=== PATIENT | male | born 2000 | race Caucasian/White ===

== ENCOUNTER 2021-10-10 13:36 | Emergency (ER) | payer MEDICAID, SELFPAY ==
--- NOTE | ~2021-10-10 | XR_ITS ---
EXAMINATION: XR ANKLE, RIGHT CLINICAL INFORMATION: Trauma, pain COMPARISON: None TECHNIQUE: AP, lateral, and mortise views of the right ankle. FINDINGS: There is no fracture or dislocation. The malleoli are intact and the ankle mortise is symmetric. The talar dome shows no osteochondral lesion. The subtalar joint is unremarkable. XR/XR ankle RT min 3V IMPRESSION: Normal right ankle.
[2021-10-10 13:48] VITALS: BP 123/58; PULSE 102; RESP 17; TEMP 36.7; O2SAT 97; BMI 26.4
--- NOTE | 2021-10-10 14:56 | ED_ITS ---
HPI - Extremity Injury (Lower) General Chief Complaint: Extremity Injury, Lower Stated Complaint: Ankle Inj Time Seen by Provider: 10/10/21 14:47 Source: patient Mode of arrival: ambulatory Limitations: no limitations History of Present Illness HPI Narrative: 21-year-old male here with complaints of right ankle pain after an inversion injury last evening. Patient denies any additional injury. Pain is worsened with weight-bearing. Related Data Previous Rx's Medication Instructions Recorded ibuprofen 600 mg tablet 600 mg PO Q8H PRN #20 tab 10/10/21 Allergies Allergy/AdvReac Type Severity Reaction Status Date / Time No Known Allergies Allergy Verified 10/10/21 13:48 Review of Systems Review of Systems: Yes all other systems are reviewed and are negative Constitutional: Constitutional: Reports no additional constitutional complaints, Denies body ache(s), Denies chills, Denies fever(s), Denies headache(s) and Denies weakness Eyes: Eyes: Reports no additional eye complaints and Denies change in vision ENT: Reports system reviewed and no additional complaints, except as documented, Denies dizziness, Denies headache(s), Denies nasal congestion, Denies nasal discharge and Denies neck pain Cardiovascular: Cardiovascular: Reports no additional cardiovascular complaints, Denies chest pain, Denies leg edema and Denies dyspnea Respiratory: Respiratory: Reports no additional respiratory complaints, Denies cough and Denies dyspnea Gastrointestinal: Gastrointestinal: Reports no additional gastrointestinal complaints, Denies abdominal pain, Denies diarrhea, Denies nausea and Denies vomiting Genitourinary: Genitourinary: Denies urinary incontinence Musculoskeletal: Musculoskeletal: Reports no additional musculoskeletal complaints, Denies back pain, Reports arthralgias, Reports joint swelling, Denies neck pain, Denies numbness and Denies tingling Integumentary/Breasts: Skin/Breast: Reports system reviewed and no additional complaints, except as docu and Denies rash Neurologic: Reports system reviewed and no additional complaints, except as documented, Denies Abnormal speech present, Denies dizziness, Denies headache(s), Denies numbness, Denies tingling and Denies weakness [facility] Past Medical History Attestation statement: The following information was validated with the patient. Source: old records reviewed and nursing notes reviewed Medical History Asthma Social History Social History Advance Directives: No Advance Directives Information Provided: No Physical Exam Vital Signs: Vital Signs: Last Vital Signs Temp 98.0 F 10/10/21 13:48 Pulse 102 H 10/10/21 13:48 Resp 17 10/10/21 13:48 BP 123/58 L 10/10/21 13:48 Pulse Ox 97 10/10/21 13:48 BMI result Body Mass Index 26.4 Const: General: cooperative, healthy appearing, comfortable and no acute distress Orientation/consciousness: patient oriented x3 Limitations: no limitations HENMT: Head: Yes normal to inspection Ears: hearing grossly normal bilaterally General nose exam: Normal external nose present Face and sinus: Yes normal facial exam Mouth: Normal oral and palatal mucosa present Throat: Yes posterior oropharynx normal Eyes: General: appearance normal, both eyes and all related structures Pupils: Equal, round and reactive pupils present Neck: Neck: Yes normal visual inspection Chest: Chest palpation & inspection: normal inspection of the chest Resp: Effort & Inspection: normal respiratory effort Auscultation: clear to auscultation bilaterally Cardio: Rate: regular rate Rhythm: regular rhythm Peripheral pulses: Peripheral pulses 2+ throughout GI: Inspection: Yes normal to inspection Palpation (GI): Soft to palpation and nontender Auscultation: normal bowel sounds Back/Spine/Pelvis: Thoracic/Lumbar Spine: thoracic and lumbar spine normal to inspection Skin: General skin exam: no rashes or lesions noted Neuro: General: patient oriented x3, no focal motor deficits and normal sensation to monofilament Cranial nerves: Yes Equal, round and reactive pup ils present Cognition (Neuro): normal cognition Speech: No Abnormal speech present Gait exam (Neuro): Normal gait present Motor exam (neuro): 5/5 motor strength present throughout Extrem: Other: Swelling, tenderness, ecchymosis noted over the lateral ankle. Full range of motion of affected joint. Neurovascularly intact distally. No foot pain. No posterior ankle or calf pain. General: Yes normal to inspection Course Course Course Narrative: 21-year-old male here with right ankle pain after an inversion injury last evening while playing basketball. X-ray showed no bony abnormality. Likely sprain. Patient placed in air splint and given crutches for ambulation. Reviewed rice. Reviewed worrisome signs and symptoms of when to return to the emergency department. Comfortable discharge home. MDM - Extremity Injury (Lower) Medical Records Attestation: I reviewed the patient's medical records. Lab Data Attestation: I reviewed the patient's lab results. Imaging Data ankle x-ray right: Attestation: I personally reviewed and interpreted this imaging study as follows: Radiologist's impression: FINDINGS: There is no fracture or dislocation. The malleoli are intact and the ankle mortise is symmetric. The talar dome shows no osteochondral lesion. The subtalar joint is unremarkable.? XR/XR ankle RT min 3V IMPRESSION: Normal right ankle. Procedures Procedure Narrative Procedure Narrative: air cast, crutches Discharge Plan Discharge Clinical Impression: Ankle sprain and strain Patient Disposition: Home, Self-Care Instructions: Ankle Sprain (ED) Additional Instructions: Rest, ice, elevation Use the air splint and crutches for the next several days and try to limit weight-bearing Prescriptions: New ibuprofen 600 mg tablet 600 mg PO Q8H PRN (Reason: pain) Qty: 20 RF: 0 Referrals: Maria C Ruiz MD [Primary Care Provider] - 2 days (as needed)
== END 2021-10-10 15:14 | disposition home or self-care (01) ==
PROVIDERS: Emergency Provider Emergency Medicine Emergency Medical Services; PCP Internal Medicine
DX: S93.401A Sprain of unspecified ligament of right ankle, initial encounter (principal); M25.571 Pain in right ankle and joints of right foot; Y93.67 Activity, basketball; Y92.310 Basketball court as the place of occurrence of the external cause; Y99.9 Unspecified external cause status
CPT/HCPCS: 73610; 99283

== ENCOUNTER 2023-02-18 12:31 | Emergency (ER) | payer MEDICAID, SELFPAY ==
--- NOTE | ~2023-02-18 | XR_ITS ---
EXAMINATION: XR ANKLE, RIGHT CLINICAL INFORMATION: Pain status post injury. COMPARISON: None available. TECHNIQUE: AP, lateral, and mortise views of the right ankle. FINDINGS: Soft tissues are swollen at the right ankle, most pronounced laterally. Small ankle joint effusion. No fracture or malalignment. Bone mineralization is normal. Ankle mortise is symmetric. XR/XR ankle RT min 3V IMPRESSION: Soft tissue swelling at the ankle. No acute fracture or malalignment.
--- NOTE | 2023-02-18 12:54 | ED.LOWEXIN ---
HPI - Extremity Injury (Lower) General Chief Complaint: Extremity Injury, Lower Stated Complaint: R Ankle Injury 02/17/23 Time Seen by Provider: 02/18/23 13:45 Source: patient Mode of arrival: wheelchair Limitations: no limitations History of Present Illness HPI Narrative: 22 yo male presents to the ER for evaluation of right ankle pain and swelling after he rolled it while playing basketball yesterday. He was able to ambulate on it yesterday but not today due to pain and swelling. History of ankle sprains in the past so he put his aircast on and came to the ER for evaluation. complaint: ankle injury Onset (ago): day(s) (1) Injury: Right: ankle Type of Injury: inversion Place: street/outdoors Severity: moderate Severity scale (1-10): 6 Relieving factors: cold therapy, immobilization and rest Exacerbating factors: weight bearing, movement and palpation Context: jumping Associated symptoms: unable to bear weight Other symptoms: none Treatments prior to arrival: bandage Related Data Previous Rx's Medication Instructions Recorded ibuprofen 600 mg tablet 600 mg PO Q8H PRN pain #20 tabs 10/10/21 Allergies Allergy/AdvReac Type Severity Reaction Status Date / Time No Known Allergies Allergy Verified 02/18/23 12:55 Review of Systems Review of Systems: Yes all other systems are reviewed and are negative PMFSH Past Medical History Medical History Asthma Social History Social History Advance Directives: No Advance Directives Information Provided: No Physical Exam Vital Signs: Vital Signs: Last Vital Signs Temp 97.3 F 02/18/23 12:55 Pulse 88 02/18/23 12:55 Resp 18 02/18/23 12:55 BP 114/68 02/18/23 12:55 Pulse Ox 97 02/18/23 12:55 O2 Del Method Room Air 02/18/23 12:55 BMI result Body Mass Index 27.2 Appearance: Alert. Oriented X3. No acute distress. HEENT: normal inspection CVS: Normal heart rate and rhythm. Pulses normal. Respiratory: No respiratory distress. Skin: Skin warm and dry. Normal skin color. Normal skin turgor. No rashes. Extremities: right ankle with mild-moderate lateral malleolus, tender, limited ROM due to pain. NV intact distally. Neuro: Oriented X 3. No motor deficit. No sensory deficit. Gait not tested due to pain Course Course Course Narrative: RME - 22 yo male presents to the ER for evaluation of right ankle injury yesterday while playing basketball. He rolled his ankle, initially could bear weight but today he can't. He put on his air cast from prior ankle injury and came to the ER for further evaluation. Plan: XR Medical Decision Making Medical Decision Making [facility] Narrative: 22 yo male Into the ER for evaluation of right ankle pain and swelling after an inversion injury while playing basketball yesterday. Initially ambulatory, now has too much pain to ambulate. X-ray today is negative for acute fracture. Will treat for ankle sprain with Scottie wrap, air cast, crutches, NSAID, rice. Stable for discharge home. Differential Diagnosis Differential Diagnoses: The differential diagnosis associated with the presentation includes Ankle sprain, ankle strain, torn ligament, ankle fracture Independent Interpretation I performed an independent interpretation of an: Plain X-Ray Interpretation: normal appearing ankle, mild soft tissue swelling Radiology Impression Discussion of test interpretation with radiology: I have reviewed the radiologist's reading. Radiologist Impression: XR/XR ankle RT min 3V IMPRESSION: Soft tissue swelling at the ankle. No acute fracture or malalignment. External Record Review External record reviewed: Prior outpatient radiology Prescription Management I considered prescription management with: Pain Medication Critical Care Time Critical Care Time Critical Care Time: No Discharge Plan Discharge Clinical Impression: Ankle sprain and strain Patient Disposition: Home, Self-Care Instructions: Ankle Sprain (DC) Additional Instructions: Your x-ray today was normal. Rest your ankle and elevate your foot when possible. Recommend SCOTTIE wrap for support and compression. Use ice several times per day for the next 48 hours. You may bear weight as tolerated. If pain is too severe, use crutches until better. Take Motrin and/or Tylenol as needed for pain. Follow up with your doctor as needed. Prescriptions: No Action ibuprofen 600 mg tablet 600 mg PO Q8H PRN (Reason: pain) Qty: 20 0RF Interventions: ED Discharge Assessment Last Done: 02/18/23 14:17 Discharge Date/Time: 02/18/23 14:18
[2023-02-18 12:55] VITALS: BP 114/68; PULSE 88; RESP 18; TEMP 36.3; O2SAT 97; BMI 27.2
== END 2023-02-18 14:18 | disposition home or self-care (01) ==
LOC: HO.ED 13:59
PROVIDERS: Emergency Provider Emergency Medicine; PCP Internal Medicine
DX: S93.401A Sprain of unspecified ligament of right ankle, initial encounter (principal); X50.1XXA Overexertion from prolonged static or awkward postures, initial encounter; Y93.9 Activity, unspecified; Y92.9 Unspecified place or not applicable; Y99.9 Unspecified external cause status
CPT/HCPCS: 73610; 99283

== ENCOUNTER 2024-04-09 17:02 | Outpatient (REF) | payer MEDICAID, SELFPAY ==
[2024-04-09 18:50] LABS: CT PCR DETECTED (Not Detect.); NG PCR NOT DETECTED (Not Detect.)
== END 2024-04-09 17:03 | disposition home or self-care (01) ==
LOC: HO.HHCLNP 17:02
PROVIDERS: Visit Provider General Practice
DX: Z20.2 Contact with and (suspected) exposure to infections with a predominantly sexual mode of transmission (principal)
CPT/HCPCS: 0353U

== ENCOUNTER 2024-05-05 11:11 | Emergency (ER) | payer MEDICAID, SELFPAY ==
[2024-05-05 11:44] VITALS: BP 123/70; PULSE 69; RESP 18; TEMP 36.9; O2SAT 99; BMI 31.9
--- NOTE | 2024-05-05 11:45 | ED.EYEPROB ---
HPI - Eye Problem General Chief complaint: Eye Problems Stated complaint: eye issue Time Seen by Provider: 05/05/24 13:52 Source: patient, RN notes reviewed and old records reviewed Mode of arrival: ambulatory History of Present Illness ED Provider: Lela Cueva PA-C HPI Narrative: 23-year-old male with no significant past medical history presenting to the ED complaining of left eye pain, irritation, and blurry vision s/p being poked in the eye while playing basketball yesterday. Admits to wearing glasses, denies contact wearing. Denies vision loss, tearing, headache Related Data Previous Rx's ?Medication ?Instructions ?Recorded ibuprofen 600 mg tablet 600 mg PO Q8H PRN pain #20 tabs 10/10/21 erythromycin 5 mg/gram (0.5 %) eye 1 appl ophthalmic (eye) QID 5 days 05/05/24 ointment #3.5 grams Allergies Allergy/AdvReac Type Severity Reaction Status Date / Time No Known Allergies Allergy Verified 05/05/24 11:47 Review of Systems Review of Systems: Constitutional: No Fever, No Chills,No Fatigue, No Malaise ENT/Mouth: No Ear Pain, No Nasal Congestion, No sore throat, No Rhinorrhea Eyes: +Eye Pain, No Swelling, +Redness, No Foreign Body, No Discharge, + Vision Changes Cardiovascular: No Chest Pain, No SOB Respiratory: No Cough, No Dyspnea Musculoskeletal: No joint pain, No Myalgias, No Joint Swelling Skin: No Skin Lesions, No rash Neuro: No Loss of Consciousness, No Dizziness, No Headache Yes all other systems are reviewed and are negative Constitutional: Constitutional: Reports as per HPI Eyes: Eyes: Reports photophobia PMFSH Past Medical History Attestation statement: The following information was validated with the patient. Source: old records reviewed Medical History Asthma Social History Social History Advance Directives: No Advance Directives Information Provided: No Do you have a plan to hurt others: No Plan Physical Exam Vital Signs: Vital Signs: Last Vital Signs Temp 98.3 F 05/05/24 15:04 Pulse 70 05/05/24 15:04 Resp 16 05/05/24 15:04 BP 127/70 05/05/24 15:04 Pulse Ox 96 05/05/24 15:04 O2 Del Method Room Air 05/05/24 15:04 BMI result Body Mass Index 31.9 Const: General: cooperative, healthy appearing and no acute distress Orientation/consciousness: patient oriented x3 Limitations: no limitations HEENT: Head: Yes normal to inspection and Yes atraumatic Ears: hearing grossly normal bilaterally General nose exam: Normal external nose present Face and sinus: Yes normal facial exam Eyes: General: appearance normal, both eyes and all related structures Periorbital: periorbital findings normal Conjunctivae: conjunctival abnormal left conjunctival injection diffuse Corneas: corneas abnormal on the left fluorescein used and abrasion linear (3 o'clock position); without dendrites present and without ulcerations Pupils: Equal, round and reactive pupils present EOM: EOMs intact bilaterally Direct Ophthalmoscopy: normal light reflex and photophobia Neck: Neck: Yes normal visual inspection and Yes no meningeal signs Resp: Effort & Inspection: normal respiratory effort and no respiratory distress Cardio: Rate: regular rate Skin: Rashes: no rashes Wounds: no wounds Neuro: General: patient oriented x3, tone normal and no meningeal signs Cranial nerves: Yes CN's II-XII intact bilaterally and Yes Equal, round and reactive pupils present Gait exam (Neuro): Normal gait present Extrem: General: Yes normal to inspection Course Course Course Narrative: This is an RME: Additional HPI, ROS, PE not included below will be deferred to primary provider. RME assessment and note performed by: Mary Ellen Vazquez PA-C This is a [id number]-ezh-male who presents to the ER with complaints of left eye pain since yesterday. He was playing basketball yesteray and was accidentally poked in the eye with someone elses finger. Reporting pain and blurred vision from left eye. Left eye periorbital edema noted, some conjunctival injection. Plan: Further ER eval needed > fluorescein staine, tetravaine and visual acuity ordered Medications Administered Discontinued Medications Generic Name Dose Route Start Last Admin Trade Name Freq PRN Reason Stop Dose Admin Fluorescein Sodium 1 strip 05/05/24 11:47 05/05/24 14:44 Fluorescein Sodium Strip EYE-LEFT 05/05/24 11:48 1 strip ONCE ONE Administration Tetracaine HCl 1 drop 05/05/24 11:47 05/05/24 14:44 Tetracaine Hcl/Pf 0.5% Oph Maci 4 Ml Drops EYE-LEFT 05/05/24 11:48 1 drop ONCE ONE Administration Medical Decision Making Medical Decision Making MDM Narrative: 23-year-old male with no significant past medical history presenting to the ED complaining of left eye pain, irritation, and blurry vision s/p being poked in the eye while playing basketball yesterday. On exam vital signs stable, NAD, nontoxic appearing, physical exam appreciable for a left eye corneal abrasion. No appreciable ulceration. No evidence of globe rupture. EOMs intact without pain. Unlikely periorbital or orbital cellulitis Plan: Fluorescein staining, visual acuity, ophthalmology follow-up Please refer to course for remaining clinical decision making, interpretation of labs/imaging results, and discussions with consultants and/or family members. Differential Diagnosis Differential Diagnoses: The differential diagnosis associated with the presentation includes As above External Record Review External record reviewed: Inpatient record, Office record, Outpatient record, Prior outpatient labs, Prior outpatient radiology, Primary care record and Outside ED record Tests considered The following testing was considered but not selected: As above Prescription Management I considered prescription management with: Pain Medication and Antibiotic Discharge Plan Discharge Clinical Impression: Corneal abrasion Patient Disposition: Home, Self-Care Instructions: Corneal Abrasion (DC) Additional Instructions: You have a scratching your eye Please use erythromycin ointment as prescribed Please follow-up with ophthalmology If symptoms persist or worsen pain becomes unbearable, vision loss return to the ED Prescriptions: New erythromycin 5 mg/gram (0.5 %) ointment 1 appl ophthalmic (eye) QID 5 Days Qty: 3.5 0RF No Action ibuprofen 600 mg tablet 600 mg PO Q8H PRN (Reason: pain) Qty: 20 0RF Referrals: Francesco Cisse [Physician] - Discharge Date/Time: 05/05/24 15:05 Print Language: Belarusian
[2024-05-05] MEDS: Tetracaine HCl/PF 0.5% Oph Sol 4 ML DROPS 1 DROP EYE-LEFT (14:44)
[2024-05-05] MEDS: Fluorescein Sodium STRIP 1 STRIP EYE-LEFT (14:44)
[2024-05-05 15:04] VITALS: BP 127/70; PULSE 70; RESP 16; TEMP 36.8; O2SAT 96
== END 2024-05-05 15:05 | disposition home or self-care (01) ==
PROVIDERS: Emergency Provider Emergency Medicine
DX: S05.01XA Injury of conjunctiva and corneal abrasion without foreign body, right eye, initial encounter (principal); W50.0XXA Accidental hit or strike by another person, initial encounter; Y93.67 Activity, basketball; Y92.310 Basketball court as the place of occurrence of the external cause; Y99.9 Unspecified external cause status
CPT/HCPCS: 99282; 99283

== ENCOUNTER 2025-02-01 13:37 | Outpatient (REF) | payer MEDICAID, SELFPAY ==
[2025-02-01 14:44] LABS: MANUAL DIFF FLAG NO
[2025-02-01 14:50] LABS: Basophils Absolute Auto 0.1 X10*3/uL (0.0-0.2); Basophils Percent Auto 1.1 % (0-2); Eosinophils Absolute Auto 0.5 X10*3/uL (0.0-0.4); Eosinophils Percent Auto 7.7 % (0-4); Hematocrit 41.3 % (42.0-52.0); Hemoglobin 13.9 g/dl (14.0-18.0); Imm Gran Abs Auto 0.03 X10*3/uL (0.00-0.03); Imm Gran Pct Auto 0.5 % (0.0-0.4); Lymphocytes Absolute Auto 1.1 X10*3/uL (1.2-4.9); Lymphocytes Percent Auto 17.5 % (20-40); Mean Corpuscular HGB Conc 33.7 g/dl (31.0-36.0); Mean Corpuscular Hemoglobin 30.8 pg (27.0-33.0); Mean Corpuscular Volume 91.6 fL (80.0-98.0); Monocytes Absolute Auto 0.6 X10*3/uL (0.1-1.2); Monocytes Percent Auto 8.8 % (2-11); Neutrophils Absolute Auto 4.1 x10*3/uL (2.0-8.3); Neutrophils Percent Auto 64.4 % (45-73); Platelet Count 250 X10*3/uL (160-400); Red Blood Count 4.51 X10*6/uL (4.60-5.80); Red Cell Distribution Width 12.7 % (11.0-16.0); White Blood Count 6.3 X10*3/uL (4.8-10.8)
[2025-02-01 15:15] LABS: Alanine Aminotransferase 21 U/L (0-40); Albumin Level 4.3 g/dL (3.5-5.0); Anion Gap 9 (12-20); Aspartate Amino Transferase 22 U/L (5-37); Bilirubin Total 0.9 mg/dL (0.0-1.0); Blood Urea Nitrogen 15 mg/dL (9-16); Calcium 9.4 mg/dL (8.4-10.2); Carbon Dioxide 27 mmol/L (22-29); Chloride 108 mmol/L (96-108); Estimated Glomerular Filt Rate > 60; Glucose Random 81 mg/dL (60-115); Potassium 3.9 mmol/L (3.3-5.1); Sodium 140 mmol/L (135-145); Total Protein 6.9 g/dL (6.5-8.0)
[2025-02-01 15:37] LABS: TSH reflex Free T4 1.95 uIU/mL (0.32-4.0)
[2025-02-01 15:47] LABS: Folate 9.3 ng/mL (> or = 4.0); Vitamin B12 461 pg/mL (200-900)
--- OUTSIDE RECORDS SUMMARY | 2025-02-01 16:45 | XMS_ITS | Data Portability ---
Author Organization LM - [facility] [address] Address [address] [place] [address] Assessment No assessment recorded. Plan of Treatment Reminders Order Date Submit Date Provider Last Modified By Organization Details Last Modified Time Details Appointments None recorded. Lab None recorded. Referral None recorded. Procedures None recorded. Surgeries None recorded. Imaging None recorded. Medication Orders Aplisol 5 tub. unit/0.1 mL intradermal injection solution 2022 023 [email or web address] Not available 13:11:00 Patient TargetsNo targets recorded. Patient InstructionsNo instructions recorded. Reason for Referral None Reported. Medical Equipment None Reported. Medications Name Sig Start Date Stop Date Status Note LastModified by Organization Details LastModified Time Aplisol 5 tub. unit/0.1 mL intradermal injection solution Inject 0.1 mL by intradermal route. 2022 active Not Available Not Available Not Avai lable Vitals None Recorded Social History None recorded. Functional Status None recorded. Mental Status None recorded. Family History Nothing Reported. Medical History No medical history recorded. Past Encounters Encounter ID Performer Location Encounter Start Date Encounter Closed Date Diagnosis/Indication Diagnosis SNOMED-CT Code Diagnosis ICD10 Code Diagnosis Note [id number] [address] [place] [address] 06/16/2020 12:07:14 06/16/2020 13:26:02 [id number] [facility] [address] [place] [address] 12/12/2022 11:46:18 12/12/2022 13:24:07 History and physical examination, pre-employment 451462590 Z02.1 Health Concerns Section Related Observation LastModified by Organization Detai ls LastModified Time None Recorded Concern Status LastModified by Organization Details LastModified Time None Recorded Advance Directives Directive None Recorded Payers Encounter Date Sequence Insurance Name Policy Number Policy Mae Covered Member ID Mae Member ID Guarantor Name 12/12/2022 DO NOT USE [employer] PAY AT TIME OF SERVICE PAY AT TIME OF SERVICE Boy Palacios
--- OUTSIDE RECORDS SUMMARY | 2025-02-01 16:46 | XMS_ITS | Encounter Summary ---
Author Organization [employer] Address [address] [facility] [address] [place] [address] Care Team Providers Care Claims Representative Name Role Phone Liza Joe MD Primary Care Provider [phone] Reason for Visit * Reason Comments Care Coordination CHW outreach for SDO H PT-1 and food needs-referral completed Encounter Details Date Type Department Care Team (Latest Contact Info) Description 02/01/2025 Patient Outreach [facility] MEDICINE [address] [place] [address] Liza Joe MD [address] [facility] [place] [id number] Care Coordination (CHW outreach for SDOH PT-1 and food needs-referral completed /) Social History Tobacco Use Types Packs/Day Years Used Date Smoking Tobacco: Never Smokeless Tobacco: Never Alcohol Use Standard Drinks/Week Comments Never 0 (1 standard drink = 0.6 oz pur e alcohol) Depression Answer Date Recorded Patient Health Questionnaire-9 Score 22 02/01/2025 Patient Health Questionnaire-9 Score 22 02/01/2025 Last PHQ-9: Questionnaire Data Not on file 0 02/01/2025 Housing Stability Answer Date Recorded What is your housing situation today? I have mya alvarado 01/17/[address] you li ve. Do you have problems with any of the following? None of the above 01/17/2025 Food Insecurity Answer Date Recorded Within the past 12 months, y ou worried that your food would run out before you got money to buy more: Never True 01/17/2025 Within the past 12 months,th e food you bought just didn't last and you didn't have enough money to get more: Never True Transportation Answer Date Recorded In the past 12 months, has l ack of transportation kept you from medical appts, meetings, work or from getting things needed for daily living? Yes, it has kept me from medical appointments or getting medications. 02/01/2025 Utilities Answer Date Recorded In the past 12 months, has t he electric, gas, oil or water company threatened to shut off services in your home? I am not sure 02/01/2025 Depression Answer Date Recorded Patient Health Questionnaire-2 Score 6 02/01/2025 Internet Access Answer Date Recorded Internet Access Q1 Yes 01/17/2025 Internet Access Q2 Not on file 01/17/2025 Sex and Gender Information Value Date Recorded Sex Assigned at Male 08/19/2022 10:15 AM EDT Legal Sex Male 10:15 AM EDT Gender Identity Male 08/19/2022 10:15 AM EDT Sexual Orientation Choose not to disclose 2021 10:15 AM EDT documented as of this encounter Progress Notes * Kurtis Peter - 02/01/2025 2:18 PM EDT CHW Kurtis Peter, placed outbound call to patient for assistance with SDOH as a referral was received by the provider. Patient's name and were confirmed. Patient screened positive for the following SDOH food insecurities. CHW referral patient to the local list of pantries in the area for help. PT-1 requested was send out in behalf of patient for futures appt. Patient verbalizes understandin g, and able to agree with plan to follow up. Patient educated on extended clinic hours on Mondays through Wednesdays, and Walk-In Urgent Care Located in [facility] of [facility]. Patient provided with after-hours line for [facility], , which offer night time triage service and option to transfer to transportation director provider if needed. documented in this encounter Plan of Treatment Upcoming Encounters Date Type Department Care Team ([facility] st Contact Info) Description 06/02/2025 12:15 PM EDT Immunization [facility] MEDICINE [address] [place] [address] documented as of this encounter Visit Diagnoses Not on filedocumented in this encounter Additional Health Concerns Assessment Noted Time PHQ-9 Depression Total Score: 22 025 1:37 PM EDT documented as of this encounter Care Teams Claims Representative Relationship Specialty Start Date End Date Liza Joe MD [address] [place] [phone] PCP - General Internal Medicine 02/01/25 documented as of this encounter
--- OUTSIDE RECORDS SUMMARY | 2025-02-01 16:46 | XMS_ITS | Clinical Summary ---
Author Organization [employer] Address [address] [facility] 7[address] [place] [address] Care Team Providers Care Project Development Coordinator Name Role Phone Liza Joe MD Primary Care Provider [phone] Allergies No known active allergies Medications mirtazapine (Remeron) 15 MG tabletIndication s:Mood disorder (CMS/HCC),Adjust ment insomnia Take 1 tablet (15 mg) by mouth at bedtime. 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 Dysuria 04/09/2024 Exposure to chlamydia 04/09/2024 Assessment & Plan (04/09/2024 3:36 PM EDT): Doxycycline 100mg BID, first dose given in clinic Reviewed precautions for side effects, namely stomach upset and sun exposure To use condoms with all sexual encounters until negative test of cure in 8-12 weeks Consider PeP doxycycline as well Encounters Date Type Department Care Team Description 02/01/2025 1:00 PM EDT Office Visit [facility] [address] [place], [place] [phone] Liza Joe MD Mood disorder (CMS/HCC) (Primary Dx); Adjustment insomnia 02/01/2025 Patient Outreach [facility] [address] [place] [address] Liza Joe MD Care Coordination (CHW outreach for SDOH PT-1 and food needs-referral completed /) 02/01/2025 Telephone [facility] [address] [place] [address] Liza Joe MD 02/01/2025 Travel 01/17/2025 Patient Outreach [facility] [address] [place] [address] Norma Wade DO Pre-visit Planning (SDOH screening negative and tobacco screening negative) 12/31/2024 12:15 PM EDT Immunization [facility] [address] [place] [address] Charlotte Canada LPN Encounter for immunization 12/31/2024 Travel 12/31/2024 Population Health Risk Score [facility] () Department [address] [place] [phone] Provider, Population Health Generic 12/03/2024 12:30 PM EST Immunization [facility] [address] [place] [address] Charlotte Canada LPN Encounter for immunization (Primary Dx) 12/03/2024 Travel 11/15/2024 Telephone [facility] [address] [place] [address] Mana Ibrahim CNP telephone call 11/04/2024 10:15 AM EST Office Visit [facility] [address] [place] [address] Hesham, Danielle, OD Hyperopia of both eyes (Primary Dx) from Last 3 Months Immunizations Name Administration Dates Next Due DTaP 05/23/2003, 1,1999,09/25,1999 HPV 9-Valent 01/04/2016 HPV, Quadrivalent 11/04/2013,05/08/2012 Hep A, ped/adol, 2 dose 01/04/2016,11/04/2013 Hep B, Adolescent or Pediatric 09/03/2000,1999,1999 Hep B, adult 12/31/2024,12/03/2024 Hib (HbOC) 09/03/2000, 0,1999,07/17 IPV 05/23/2003, 1,1999,07/17 Influenza injectable quadriv alent IIV4 with preservative 01/04/2016 Influenza injectable quadriv alent preservative free 02/27/2023,08/27/2019 Influenza, IIV3, injectable 09/03/2000, 0 Influenza, Split (incl. sindy fied surface antigen) 11/04/2013 Influenza, seasonal, injecta ble, preservative free 12/31/2024 MMR 05/23/2003,08/05/2000 Meningococcal MCV4P ACYW-135 01/04/2016,05/08/20 12 Pfizer Covid-19 Vaccine 12+ 12/03/2024 Pfizer Covid-19 Vaccine 12+ Bivalent 12/16/2022 Pneumococcal Conjugate PCV 7 01/13/2001,08/05/20 00 Tdap 12/03/2024,05/08/2012 Varicella 02/18/2008,08/05/2000 Family History Medical History Relation Name Comments Schizophrenia Brother Hypertension Maternal Grandfather Schizophrenia Maternal Grandfather Diabetes type II Maternal Grandmother Asthma Mother Relation Name Status Comments Brother Maternal Grandfather Maternal Grandmother Mother Social History Tobacco Use Types Packs/Day Years Used Date Smoking Tobacco: Never Smokeless Tobacco: Never Tobacco Cessation:Counseling Given: Not Answered Alcohol Use Standard Drinks/Week Comments Never 0 [...] not to disclose 2021 10:15 AM EDT Last Filed Vital Signs Vital Sign Reading Time Taken Comments Blood Pressure 103/63 02/01/2025 1:07 PM EDT Pulse 82 02/01/2025 1:07 PM EDT Temperature 36.7 ??C (98 ??F) 02/01/2025 1:07 PM EDT Respiratory Rate 19 02/01/2025 1:07 PM EDT Oxygen Saturation 98% 02/01/2025 1:07 PM EDT Inhaled Oxygen Concentration - - Weight 86.2 kg (190 lb) 02/01/2025 1:07 PM EDT Height 181.7 cm (5' 11.55 ) 02/01/2025 1:07 PM E DT Body Mass Index 26.09 02/01/2025 1:07 PM EDT Plan of Treatment Upcoming Encounters Date Type Department Care Team (Late st Contact Info) Description 06/02/2025 12:15 PM EDT Immunization [facility] [address] [place] [address] Health Maintenance Due Date Last Done Comments Family Planning (PISQ) 2014 Hepatitis C Screening 2017 Depression Monitoring 08/03/2025 02/01/2025, 025 Alcohol/Substance Use Screening 02/01/2026 02/01/2025 Depression Screening 02/01/2026 02/01/2025, 02/02/20 25 SDOH Screening 02/01/2026 02/01/2025 Tobacco Screening 02/01/2026 02/01/2025 DTaP/Tdap/Td Vaccines (8 - Td or Tdap) 12/03/2034 12/03/2024, 05/08/2012, 05/23/2003, Additional history exists Zoster Vaccines (1 of 2) 2049 RSV Patients and Patients Aged 60 years or older (1 - 1-dose 75+ series) 2074 HIB Vaccines Completed 09/03/2000, 10/1999, 1999, Additional history exists Pneumococcal Vaccine: Pediatrics (0 to 5 Years) and At-Risk Patients (6 to 49) Years) Aged Out 01/13/2001, 08/05/2000 No longer eligibl e based on patient's age to complete this topic IPV Vaccines Completed 05/23/2003, 09/20, 1999, Additional history exists HPV Vaccines Completed 01/04/2016, 10/20, 05/08/2012 Hepatitis A Vaccines Completed 01/04/2016, 11/04/19 14 Meningococcal Vaccine Completed 01/04/2016, 012 HIV Screening Completed 07/24/2020 COVID-19 Vaccine Completed 12/03/2024, , 05/01/2022, Additional history exists Hepatitis B Vaccines Completed 12/31/2024, 12/03/2024, 09/03/2000, Additional history exists Influenza Vaccine Completed 12/31/2024, , 08/27/2019, Additional history exists RSV under 20 months Aged Out No longe r eligible based on patient's age to complete this topic Rotavirus Vaccines Aged Out No longer eligible based on patient's age to complete this topic Procedures Procedure Name Priority Date/Time Associated Diagnosis Comments VITAMIN B12/FOLATE, SERUM PANEL Routine 02/01/2025 1:41 PM EDT Mood disorder (CMS/HCC) Adjustment insomnia VITAMIN D,25-OH,TOTAL,IA Routine 02/01/2025 1:41 PM EDT Mood disorder (CMS/HCC) Adjustment insomnia TSH W/REFLEX TO FT4 Routine 02/01/2025 1 :41 PM EDT Mood disorder (CMS/HCC) Adjustment insomnia CBC WITH AUTO DIFFERENTIAL Routine 02/01/2025 1:41 PM EDT Mood disorder (CMS/HCC) Adjustment insomnia COMPREHENSIVE METABOLIC PANEL Routine 02/01/2025 1:41 PM EDT Mood disorder (CMS/HCC) Adjustment insomnia HIV 1/2 ANTIGEN/ANTIBODY, FOURTH GENERATION W/RFL Routine 07/24/2020 3:33 PM EDT from Last 3 Months or Most Recently Relevant to Health Maintenance Results * Vitamin B12/Folate, Serum Panel (02/01/2025 1:41 PM EDT) Vitamin B12 461 200 - 900 pg/mL [facility] Comment:NORMAL 200-900 PG/ML INDETERMINATE 160-199 PG/ML DEFICIENT < 160 PG/ML Folate 9.3 > or = 4.0 ng/mL [facility] Comment:Reference Values:> o r = 4.0 ng/mL< 4.0 ng/mL suggests folate deficiency Methotrexate, aminopterin and folinic acid(leucovorin) are chemotherapeutic agents whose molecularstructures are similar to folate; therefore, the Architectfolate assay cannot be used for patients using these drugs. Blood Venous blood specimen / Unknown 02/01/2025 1:41 PM EDT 02/01/2025 2:33 PM EDT us Liza Joe MD LAB BLOOD ORDERABLES Final Result [facility] [address] [place] [phone] * (ABNORMAL) CBC auto differential (02/01/2025 1:41 PM EDT) White Blood Count 6.3 4.8 - 10.8 X10*3/uL [facility] Red Blood Count 4.51(L) 4.60 - 5.80 X10*6/uL [facility] Hemoglobin 13.9(L) 14.0 - 18.0 g/dl [facility] Hematocrit 41.3(L) 42.0 - 52.0 % [facility] Mean Corpuscular Volume 91.6 80.0 - 98.0 fL [facility] Mean Corpuscular Hemoglobin 30.8 27.0 - 33.0 pg [facility] Mean Corpuscular HGB Conc 33.7 31.0 - 36.0 g/dl [facility] Red Cell Distribution Width 12.7 11.0 - 16.0 % [facility] Platelet Count 250 160 - 400 X10*3/uL [facility] Mean Platelet Volume 10.0 9.4 - 12.4 fL [facility] Neutrophils Percent Auto 64.4 45 - 73 % [facility] Imm Gran Pct Auto 0.5(H) 0.0 - 0.4 % [facility] Lymphocytes Percent Auto 17.5(L) 20 - 40 % [facility] Monocytes Percent Auto 8.8 2 - 11 % [facility] Eosinophils Percent Auto 7.7(H) 0 - 4 % [facility] Basophils Percent Auto 1.1 0 - 2 % [facility] NRBC Pct Auto 0.0 0.0 - 0.2 /100WBC [facility] Neutrophils Absolute Auto 4.1 2.0 - 8.3 x10*3/uL [facility] Imm Gran Abs Auto 0.03 0.00 - 0.03 X10*3/uL [facility] Lymphocytes Absolute Auto 1.1(L) 1.2 - 4.9 X10*3/uL [facility] Monocytes Absolute Auto 0.6 0.1 - 1.2 X10*3/uL [facility] Eosinophils Absolute Auto 0.5(H) 0.0 - 0.4 X10*3/uL [facility] Basophils Absolute Auto 0.1 0.0 - 0.2 X10*3/uL [facility] NRBC Abs Auto 0.000 0.0 - 0.012 X10*3/uL [facility] Blood Venous blood specimen / Unknown 02/01/2025 1:41 PM EDT 02/01/2025 2:33 PM EDT us Liza Joe MD LAB BLOOD ORDERABLES Final Result [facility] [address] [place] [phone] * HIV 1/2 ANTIGEN/ANTIBODY,FOURTH GENERATION W/RFL (07/24/2020 3:33 PM EDT) HIV-1/2 ANTIGEN AND ANTIBODIES, 4TH GENERATION W/ REFLEX NON-[facility] Comment: HIV-1 antigen and HIV-1/HIV-2 antibodies were not detected. There is no laboratory evidence of HIV infection. ?? PLEASE NOTE: This information has been disclosed to you from records whose confidentiality may be protected by state law. ??If your state requires such protection, then the state law prohibits you from making any further disclosure of the information without the specific written consent of the person to whom it pertains, or as otherwise permitted by law. A general authorization for the release of medical or other information is NOT sufficient for this purpose. ? For additional information please refer to http://[employer]/faq/OHU704 (This link is being provided for informational/ educational purposes only.) ? The performance of this assay has not been clinically validated in patients less than 2 years old. ?? HIV-1/2 ANTIGEN AND ANTIBODIES, 4TH GENERATION W/ REFLEX NON-[facility]ACT [facility] Comment: HIV-1 antigen and HIV-1/HIV-2 antibodies were not detected. There is no laboratory evidence of HIV infection. ?? PLEASE NOTE: This information has been disclosed to you from records whose confidentiality may be protected by state law. ??If your state requires such protection, then the state law prohibits you from making any further disclosure of the information without the specific written consent of the person to whom it pertains, or as otherwise permitted by law. A general authorization for the release of medical or other information is NOT sufficient for this purpose. ? For additional information please refer to http://[employer]/faq/WCV065 (This link is being provided for informational/ educational purposes only.) ? The performance of this assay has not been clinically validated in patients less than 2 years old. ?? HIV-1/2 ANTIGEN AND ANTIBODIES, 4TH GENERATION W/ REFLEX NON-REACT [facility]IE NON-REACT [facility] Comment: HIV-1 antigen and HIV-1/HIV-2 antibodies were not detected. There is no laboratory evidence of HIV infection. ?? PLEASE NOTE: This information has been disclosed to you from records whose confidentiality may be protected by state law. ??If your state requires such protection, then the state law prohibits you from making any further disclosure of the information without the specific written consent of the person to whom it pertains, or as otherwise permitted by law. A general authorization for the release of medical or other information is NOT sufficient for this purpose. ? For additional information please refer to http://[employer]/faq/OHS836 (This link is being provided for informational/ educational purposes only.) ? The performance of this assay has not been clinically validated in patients less than 2 years old. ?? 07/24/2020 3:33 PM EDT Maria C Belcher MD LAB BLOOD ORDERABLES Final Result [facility] [address] from Last 3 Months or Most Recently Relevant to Health Maintenance Insurance [facility] C[facility] Care Teams Project Development Coordinator Relationship Specialty Start Date End Date Liza Joe MD [address] [place] [address] JUANA Lim [id number] PCP - General Internal Medicine 02/01/25
--- OUTSIDE RECORDS SUMMARY | 2025-02-01 16:46 | XMS_ITS | Encounter Summary ---
Author Organization [employer] [facility] Address [address] [place] [id number] Care Team Providers Care Student Activities Director Name Role Phone Liza Joe MD Primary Care Provider [phone] Reason for Referral * Consultation (Routine) - Authorized Specialty Diagnoses / Procedures Referred By Contmarie t Referred To Contact Behavioral Health Diagnoses Mood disorder (CMS/HCC) Adjustment insomnia Liza Joe MD [address] [place] [address] Phone: tel: fax: Referral ID Status Reason Start Date Expiration Date Visits Requested Visits Authorized [id number] Authorized Specialty Services Required 02/01/2025 02/01/2026 1 1 Reason for Visit * Reason Comments Establish Care Encounter Details Date Type Department Care Team ([facility] Contact Info) Description 02/01/2025 1:00 PM EDT Office Visit [facility] [address] [place] [address] Liza Joe MD [address] [place] [address] Mood disorder (CMS/HCC) (Primary Dx); Adjustment insomnia Social History Tobacco Use Types Packs/Day Years [...] AM EDT documented as of this encounter Last Filed Vital Signs Vital Sign Reading [...] Mass Index 26.09 02/01/2025 1:07 PM EDT documented in this encounter Progress Notes * Liza Joe MD - 02/01/2025 1:00 PM EDT Subjective Patient ID: Boy Palacios is a 24 y.o. male who presents for Establish Care. HPI Patient presented himself accompanied by his mother [facility] to [facility] care. The mother reports family history of mental health problems. She also reports that Mr.Tyrese Palacios is depressed, poorly motivated, has decreased concentration, insomnia for several months. He has notbeen able to keep a job because of the symptoms. He is unable to focus and he is very forgetful. No reported suicidal ideation or homicidal ideation. Has had these symptoms for several years but he has reached a point where he feels like he needs help. He was on medication in the past and cannot recall which one. Patient Active Problem List Diagnosis Dysuria Exposure to chlamydia Congenital nystagmus Hypoplasia of fovea centralis No current outpatient medications on file prior to visit. No current facility-administered medications on file prior to visit. No Known Allergies Review of Systems Constitutional: Negative for appetite change, chills and diaphoresis. Eyes: Negative for photophobia, pain and redness. Respiratory: Negative for cough and choking. Musculoskeletal: Negative for gait problem and joint swelling. Skin: Negative for pallor and rash. Psychiatric/Behavioral: Positive for decreased concentration. The patient is nervous/anxious. Insomnia. Difficulty falling asleep and staying asleep. Objective BP 103/63 (BP Location: Left arm, Patient Position: Sitting, BP Cuff Size: Adult) Pulse 82 Temp98 ??F (36.7 ??C) (Oral) Resp 19 Ht 5' 11.55 (1.817 m) Wt 190 lb (86.2 kg) SpO2 98% BMI 26.09 kg/m?? Physical Exam Constitutional: General: He is not in acute distress. Appearance: Normal appearance. He is not ill-appearing, toxic-appearing or diaphoretic. Cardiovascular: Rate and Rhythm: Normal rate. Pulmonary: Effort: Pulmonary effort is normal. Skin: General: Skin is warm. Neurological: Mental Status: He is alert. Psychiatric: Mood and Affect: Mood is depressed. Judgment: Judgment normal. Assessment/Plan Diagnoses and all orders for this visit: Mood disorder (CMS/HCC) - Comprehensive Metabolic Panel; Future - CBC auto differential; Future - TSH W/Reflex to FT4; Future - Vitamin D, 25-Hydroxy, Total, Immunoassay; Future - Vitamin B12/Folate, Serum Panel; Future - mirtazapine (Remeron) 15 MG tablet; Take 1 tablet (15 mg) by mouth at bedtime. - Referral to Behavioral Health; Future Adjustment insomnia Patient denies suicidal ideation or homicidal ideation He appears to be motivated to start therapy He will need a prescriber in the future He will need to follow-up with me in 4 to 6 weeks - Comprehensive Metabolic Panel; Future - CBC auto differential; Future - TSH W/Reflex to FT4; Future - Vitamin D, 25-Hydroxy, Total, Immunoassay; Future - Vitamin B12/Folate, Serum Panel; Future - mirtazapine (Remeron) 15 MG tablet; Take 1 tablet (15 mg) by mouth at bedtime. - Referral to Behavioral Health; Future documented in this encounter Plan of Treatment Upcoming Encounters Date Type Department Care Team (Late st Contact Info) Description 06/02/2025 12:15 PM EDT Immunization [facility] [address] [place] [phone] Pending Results Name Type Priority Associated Diagnoses Date /Time Comprehensive Metabolic Panel Lab Routine Mood disorder ([facility]/HCC) Adjustment insomnia 02/01/2025 1:41 PM EDT TSH W/Reflex to FT4 Lab Routine Mood disorder ([facility]/HCC) Adjustment insomnia 02/01/2025 1:41 PM EDT Vitamin D, 25-Hydroxy, Total, Immunoassay Lab Routine Mood disorder ([facility]/HCC) Adjustment insomnia 02/01/2025 1:41 PM EDT Scheduled Referrals Name Type Priority Associated Diagnoses Order Schedule Referral to Behavioral Health Outpatient Referral Routine Mood disorder ([facility]/HCC) Adjustment insomnia Expected: 02/01/2025 (Approximate), Expires: 02/01/2026 documented as of this encounter Procedures Procedure Name Priority Date/Time Associated Diagnosis Comments VITAMIN D,25-OH,TOTAL,IA Routine 02/01/2025 1:41 PM EDT Mood disorder (CMS/HCC) Adjustment insomnia VITAMIN B12/FOLATE, SERUM PANEL Routine 02/01/2025 1:41 PM EDT Mood disorder (CMS/HCC) Adjustment insomnia TSH W/REFLEX TO FT4 Routine 02/01/2025 1 :41 PM EDT Mood disorder (CMS/HCC) Adjustment insomnia CBC WITH AUTO DIFFERENTIAL Routine 02/01/2025 1:41 PM EDT Mood disorder (CMS/HCC) Adjustment insomnia COMPREHENSIVE METABOLIC PANEL Routine 02/01/2025 1:41 PM EDT Mood disorder (CMS/HCC) Adjustment insomnia documented in this encounter Results * Vitamin B12/Folate, Serum Panel (02/01/2025 1:41 PM EDT) Pathologist [facility] Vitamin B12 461 200 - 900 pg/mL [facility] Comment:NORMAL 200-900 PG/ML INDETERMINATE 160-199 PG/ML DEFICIENT < 160 PG/ML Folate 9.3 > or = 4.0 ng/mL [facility] Comment:Reference Values:> o r = 4.0 ng/mL< 4.0 ng/mL suggests folate deficiency Methotrexate, aminopterin and folinic acid(leucovorin) are chemotherapeutic agents whose molecularstructures are similar to folate; therefore, the Architectfolate assay cannot be used for patients using these drugs. Blood Venous blood specimen / Unknown 02/01/2025 1:41 PM EDT 02/01/2025 2:33 PM EDT us Liza Joe MD LAB BLOOD ORDERABLES Final Result [facility] [address] [place] [address] [phone] * (ABNORMAL) CBC auto differential (02/01/2025 1:41 PM EDT) Pathologist [facility] White Blood Count 6.3 4.8 - 10.8 X10*3/uL [facility] Red Blood Count 4.51(L) 4.60 - 5.80 X10*6/uL [facility] Hemoglobin 13.9(L) 14.0 - 18.0 g/dl [facility] Hematocrit 41.3(L) 42.0 - 52.0 % [facility] Mean Corpuscular Volume 91.6 80.0 - 98.0 fL [facility] Mean Corpuscular Hemoglobin 30.8 27.0 - 33.0 pg [facility] Mean Corpuscular HGB Conc 33.7 31.0 - 36.0 g/dl [facility] Red Cell Distribution Width 12.7 11.0 - 16.0 % [facility] Platelet Count 250 160 - 400 X10*3/uL [facility] Mean Platelet Volume 10.0 9.4 - 12.4 fL [facility] Neutrophils Percent Auto 64.4 45 - 73 % [facility] Imm Gran Pct Auto 0.5(H) 0.0 - 0.4 % [facility] Lymphocytes Percent Auto 17.5(L) 20 - 40 % [facility] Monocytes Percent Auto 8.8 2 - 11 % [facility] Eosinophils Percent Auto 7.7(H) 0 - 4 % [facility] Basophils Percent Auto 1.1 0 - 2 % [facility] NRBC Pct Auto 0.0 0.0 - 0.2 /100WBC [facility] Neutrophils Absolute Auto 4.1 2.0 - 8.3 x10*3/uL [facility] Imm Gran Abs Auto 0.03 0.00 - 0.03 X10*3/uL [facility] Lymphocytes Absolute Auto 1.1(L) 1.2 - 4.9 X10*3/uL [facility] Monocytes Absolute Auto 0.6 0.1 - 1.2 X10*3/uL [facility] Eosinophils Absolute Auto 0.5(H) 0.0 - 0.4 X10*3/uL [facility] Basophils Absolute Auto 0.1 0.0 - 0.2 X10*3/uL [facility] NRBC Abs Auto 0.000 0.0 - 0.012 X10*3/uL [facility] Blood Venous blood specimen / Unknown 02/01/2025 1:41 PM EDT 02/01/2025 2:33 PM EDT Liza Joe MD LAB BLOOD ORDERABLES Final Result [facility] [address] [place] [phone] [phone] documented in this encounter Visit Diagnoses Diagnosis Mood disorder (CMS/[facility])- Primary Unspecified episodic mood disorder Adjustment insomnia Insomnia, unspecified documented in this encounter Additional Health Concerns Assessment Noted Time PHQ-9 Depression Total Score: 22 025 1:37 PM EDT documented as of this encounter Care Teams Student Activities Director Relationship Specialty Start Date End Date Liza Joe MD [address] [place] [phone] PCP - General Internal Medicine 02/01/25 documented as of this encounter
--- OUTSIDE RECORDS SUMMARY | 2025-02-01 16:46 | XMS_ITS | Encounter Summary ---
Author Organization [email or web address] Address [address] [facility] [address] [place] [address] Care Team Providers Care Traditional Chinese Herbalist Name Role Phone Liza Joe MD Primary Care Provider [phone] Encounter Details Date Type Department Care Team ([facility] st Contact Info) Description 02/01/2025 Telephone [facility] [address] [place] [address] Liza Joe MD [address] [place] [address] Social History Tobacco Use Types Packs/Day Years [...] AM EDT documented as of this encounter Miscellaneous Notes * Telephone Encounter - Sultana Martin MA - 02/01/2025 1:34 PM EDT SDOH referral transportation documented in this encounter Plan of Treatment Upcoming Encounters Date Type Department Care Team (Late st Contact Info) Description 06/02/2025 12:15 PM EDT Immunization [facility] [address] [place] [phone] documented as of this encounter Visit Diagnoses Not on filedocumented in this encounter Additional Health Concerns Assessment Noted Time PHQ-9 Depression Total Score: 22 025 1:37 PM EDT documented as of this encounter Care Teams Traditional Chinese Herbalist Relationship Specialty Start Date End Date Liza Joe MD [address] [place] [address] PCP - General Internal Medicine 02/01/25 documented as of this encounter
--- OUTSIDE RECORDS SUMMARY | 2025-02-01 16:46 | XMS_ITS | Encounter Summary ---
Author Organization [employer] Address [address] [place] [address] Care Team Providers Care Observation Assistant Name Role Phone Liza Joe MD Primary Care Provider [phone] Encounter Details Date Type Department Care Team (Latest Contact Info) Description 02/01/2025 Travel Social History Tobacco Use Types Packs/Day Years [...] AM EDT documented as of this encounter Plan of Treatment Upcoming Encounters Date Type Department Care Team (Late st Contact Info) Description 06/02/2025 12:15 PM EDT Immunization [facility] MED[facility]INE [address] [place] [id number] documented as of this encounter Visit Diagnoses Not on filedocumented in this encounter Additional Health Concerns Assessment Noted Time PHQ-9 Depression Total Score: 22 025 1:37 PM EDT documented as of this encounter Care Teams Observation Assistant Relationship Specialty Start Date End Date Liza Joe MD [address] [place] [id number] PCP - General Internal Medicine 02/01/25 documented as of this encounter
[2025-02-01 17:21] LABS: Alkaline Phosphatase 54 U/L (39-117)
== END 2025-02-01 13:38 | disposition home or self-care (01) ==
LOC: HO.CHCLDS 13:37
PROVIDERS: Visit Provider Internal Medicine
DX: F39 Unspecified mood [affective] disorder (principal); F51.02 Adjustment insomnia
CPT/HCPCS: 36415; 80053; 82306; 82607; 82746; 84443; 85025